=== PATIENT | female | born 1960 ===

== ENCOUNTER 2016-10-22 14:30 | Outpatient (RCR) | payer MEDICARE, MEDICAID ==
[~2016-10-22 14:30] MED LIST: IBUPROFEN600 MG ORAL; LISINOPRIL20 MG ORAL; METOPROLOL TART50 MG ORAL; NORCO 5-325 TA1 EACH ORAL; PLAVIX75 MG ORAL
== END 2016-10-29 | disposition home or self-care (01) ==
LOC: WCC 14:30
DX: L97.522 Non-pressure chronic ulcer of other part of left foot with fat layer exposed (principal); E11.621 Type 2 diabetes mellitus with foot ulcer; E11.42 Type 2 diabetes mellitus with diabetic polyneuropathy
CPT/HCPCS: 11042; G0463

== ENCOUNTER 2016-11-05 14:30 | Outpatient (RCR) | payer MEDICARE, OTHER | END 2016-11-29 | disposition home or self-care (01) | LOC: WCC 14:30 | DX: L97.522 Non-pressure chronic ulcer of other part of left foot with fat layer exposed (principal); E11.42 Type 2 diabetes mellitus with diabetic polyneuropathy; I73.89 Other specified peripheral vascular diseases; Z86.73 Personal history of transient ischemic attack (TIA), and cerebral infarction without residual deficits | CPT/HCPCS: G0463 ==

== ENCOUNTER 2017-01-07 15:14 | Outpatient (RCR) | payer MEDICARE, OTHER | END 2017-01-29 | disposition home or self-care (01) | LOC: WCC 15:14 | DX: L97.522 Non-pressure chronic ulcer of other part of left foot with fat layer exposed (principal); E11.42 Type 2 diabetes mellitus with diabetic polyneuropathy; I73.89 Other specified peripheral vascular diseases; Z86.73 Personal history of transient ischemic attack (TIA), and cerebral infarction without residual deficits | CPT/HCPCS: 11042; 11056 ==